=== PATIENT | male | born 1960 | race Asian ===

== ENCOUNTER 2020-05-15 03:07 | Inpatient (IN) | payer OTHER ==
[2020-05-15] VITALS (23 sets, daily range): BP systolic 113–179; BP diastolic 51–117
[~2020-05-15] VITALS: Ht 170.2 cm; Wt 117.0 kg
--- NOTE | 2020-05-15 03:11 | NUR ---
bibra for sob x 30 mins captain room service. per ra room air 02 was 89-90% placed on NRB at 15lpm.; pt to bed 8, placed on monitor. +sob. hx of dialysis m/w/f. pending er provider rony
[2020-05-15] MEDS ORDERED: IPRATROPIUM NEB FS 0.5 MG/2.5 ML AMPUL.NEB ONE (03:39)
[2020-05-15] MEDS ORDERED: ALBUTEROL FS 2.5 MG/3 ML VIAL.NEB ONE (03:39)
[2020-05-15] MEDS ORDERED: AMIN30LI27 PO (03:57)
[2020-05-15] MEDS ORDERED: DEXT15DR6 OP (03:57)
[2020-05-15] MEDS ORDERED: ASPI-1169 PO (03:57)
[2020-05-15] MEDS ORDERED: VIT1TABL44 PO (03:57)
[2020-05-15] MEDS ORDERED: BISA-79 PO (03:57)
[2020-05-15] MEDS ORDERED: AMLO5TAB4 PO (03:57)
[2020-05-15] MEDS ORDERED: MAG-5 PO (03:57)
[2020-05-15] MEDS ORDERED: ACET-73 PO (03:57)
[2020-05-15] MEDS ORDERED: LORA10TA7 PO (03:57)
[2020-05-15] MEDS ORDERED: MAGN400O6 GT (03:57)
[2020-05-15] MEDS ORDERED: CLON-418 PO (03:57)
[2020-05-15] MEDS ORDERED: ONDA4TAB5 PO (03:57)
[2020-05-15] MEDS ORDERED: MIDO5TAB4 PO (03:57)
[2020-05-15] MEDS ORDERED: INSU100V39 SQ (03:57)
[2020-05-15] MEDS ORDERED: HYDR4TAB57 PO (03:57)
[2020-05-15] MEDS ORDERED: AMIO200T4 PO (03:57)
[2020-05-15] MEDS ORDERED: PANT40TA49 PO (03:57)
[2020-05-15] MEDS ORDERED: METO50TA16 PO (03:57)
[2020-05-15] MEDS ORDERED: NA P133E RC (03:57)
[2020-05-15] MEDS ORDERED: INSU100V7 SQ (03:57)
[2020-05-15] MEDS ORDERED: GABA-532 PO (03:57)
[2020-05-15] MEDS ORDERED: SEVE800T8 PO (03:57)
[2020-05-15] MEDS ORDERED: CLOP75TA15 PO (03:57)
[2020-05-15] MEDS ORDERED: IPRATROPIUM NEB FS 0.5 MG/2.5 ML AMPUL.NEB NEB ONE (04:00)
[2020-05-15] MEDS ORDERED: ALBUTEROL FS 2.5 MG/3 ML VIAL.NEB CONTNEB ONE (04:00)
[2020-05-15 04:06] LABS: BASOPHILS # (AUTO) 0.1 /CMM (0.0-0.2); BASOPHILS % (AUTO) 0.5 % (0.0-2.0); EOSINOPHILS % (AUTO) 1.1 % (0.0-6.0); HEMATOCRIT 38 % (39-51); LYMPHOCYTES # (AUTO) 0.7 /CMM (0.8-4.8); LYMPHOCYTES % (AUTO) 6.2 % (20.0-44.0); MEAN CORPUSCULAR HGB CONC 32 g/dl (31.0-36.0); MEAN CORPUSCULAR VOLUME 95 fL (80-96); MONOCYTES # (AUTO) 0.7 /CMM (0.1-1.30); MONOCYTES % (AUTO) 6.9 % (2.0-12.0); NEUTROPHILS # (AUTO) 9.2 /CMM (1.8-8.9); NEUTROPHILS % (AUTO) 85.3 % (43.0-81.0); PLATELET COUNT (AUTO) 123 /CMM (150-450); RED BLOOD CELL COUNT(AUTO) 3.97 MIL/uL (4.5-6.0); WHITE BLOOD COUNT (AUTO) 10.8 K/uL (4.3-11.0)
[2020-05-15 04:11] LABS: CALCIUM, SERUM 9.2 mg/dL (8.5-10.1); POTASSIUM 6.1 mmol/L (3.5-5.1)
[2020-05-15 04:20] LABS: CREATININE 9.5 mg/dL (0.6-1.3)
[2020-05-15] MEDS ORDERED: CALCIUM CHLORIDE 1,000 MG/10 ML DISP.SYRIN IV ONE (04:30)
[2020-05-15] MEDS ORDERED: INSULIN REGULAR, HUMAN 100 UNIT/ML 10 ML VIAL IV ONE (04:30)
[2020-05-15] MEDS ORDERED: FUROSEMIDE 40 MG/4 ML VIAL IV ONE (04:30)
[2020-05-15] MEDS ORDERED: SODIUM BICARBONATE SYR 50 MEQ/50 ML DISP.SYRIN IV ONE (04:30)
[2020-05-15] MEDS ORDERED: FUROSEMIDE 40 MG/4 ML VIAL ONE (04:54)
[2020-05-15] MEDS ORDERED: DEXTROSE 50%-WATER 50 ML DISP.SYRIN ONE (04:55)
[2020-05-15] MEDS ORDERED: SODIUM BICARBONATE SYR 50 MEQ/50 ML DISP.SYRIN ONE (04:55)
[2020-05-15] MEDS ORDERED: INSULIN REGULAR, HUMAN 100 UNIT/ML 10 ML VIAL ONE (04:56)
--- NOTE | 2020-05-15 05:17 | NUR ---
CALLED NURSING SUP FOR BED
--- NOTE | 2020-05-15 05:18 | NUR ---
BED 261 ASSIGNMENT
--- NOTE | 2020-05-15 05:18 | NUR ---
per dr. segura; placed pt on 4lpm nc
--- NOTE | 2020-05-15 05:22 | NUR ---
DR. BARNARD SPEAKING WITH DR. MANSFIELD REGARDING ADMISSION
[2020-05-15] MEDS ORDERED: CALCIUM CHLORIDE 1,000 MG/10 ML DISP.SYRIN ONE (05:25)
--- NOTE | 2020-05-15 05:56 | NUR ---
report given to isrrael licea for jazmine; pt will be transported to icu
[2020-05-15] MEDS ORDERED: Z GUARD REMEDY 2 OZ OINT TP PRN (06:30)
[2020-05-15] MEDS ORDERED: DEXTROSE 50%-WATER 50 ML DISP.SYRIN IV PRN (06:30)
[2020-05-15] MEDS ORDERED: NA PHOS,M-B/NA PHOS,DI-BA 1 EA ENEMA RC PRN (06:30)
[2020-05-15] MEDS ORDERED: MAG HYDROX/AL HYDROX/SIMETH 30 ML UDC PO SCH (06:30)
[2020-05-15] MEDS ORDERED: MAGNESIUM HYDROXIDE 30 ML UDC GT PRN (06:30)
[2020-05-15] MEDS ORDERED: ONDANSETRON HCL/PF 4 MG/2 ML VIAL IVP PRN (06:30)
[2020-05-15] MEDS ORDERED: BISACODYL (5 MG) 5 MG TABLET.DR PO PRN (06:30)
[2020-05-15] MEDS ORDERED: HYDROMORPHONE HCL 2 MG TABLET PO PRN (06:30)
[2020-05-15] MEDS ORDERED: HYDROCODONE/APAP 5/325MG TABLET PO PRN (06:30)
[2020-05-15] MEDS ORDERED: MAG HYDROX/AL HYDROX/SIMETH 30 ML UDC PO PRN (06:30)
[2020-05-15] MEDS ORDERED: ACETAMINOPHEN 325 MG TABLET PO PRN (06:30)
[2020-05-15] MEDS ORDERED: CLONIDINE HCL 0.1 MG TABLET PO PRN (06:30)
[2020-05-15] MEDS ORDERED: MAGNESIUM HYDROXIDE 30 ML UDC PO PRN (06:30)
--- NOTE | 2020-05-15 06:30 | NUR ---
RECEIVED PATIENT FROM RESERVATION MANAGER TERRI ROGEL. PATIENT IS ASLEEP AND EASY TO AROUSE. PATIENT IS A/O X4 NEPALI SPEAKING. NO SIGN OF ANY DISTRESS. PATIENT HAS A R PACEMAKER AND SINUS ON THE MONITOR. PATIENT IS ON 4L OF O2 SATURATING WELL AT 95% WITH NO SIGNS OF ANY SOB. VITALS WNL WILL ENDORSE TO MORNING SHIFT NURSE FOR ADMISSION REPORT.
[2020-05-15] MEDS ORDERED: hydrALAZINE HCL IV 20 MG VIAL IV PRN (08:00)
[2020-05-15] MEDS: BLOOD SUGAR DIAGNOSTIC 1 EACH STRIP VI SCH ×4 (08:04→22:44)
--- NOTE | 2020-05-15 08:10 | NUR ---
RN NOTES PT IS RESTING IN BED. PATIENT IS ASLEEP AND EASY AND TO AROUSE. PATIENT IS A/O X4 MALAY SPEAKING. NO SIGN OF ANY DISTRESS. PATIENT HAS A R PACEMAKER AND SINUS ON THE MONITOR. PATIENT IS ON 4L OF O2 SATURATING WELL AT 96% WITH NO SIGNS OF ANY SOB. VITALS PT HAS R HAND #22 THUMB AND INDEX NOT FLUSHING WELL. GOING TO PLACE AN ORDER FOR MIDLINE. POTASSIUM IS 6.1 HD WILL BE DONE TODAY.SAFETY MEASUREMENTS ARE IMPLEMENTED BY HOSPITAL POLICY. CALL LIGHT WITHIN THE REACH AND BED IS IN THE LOWEST POSITION SIDE RAILS X2.WILL CONTINUE TO MONITOR
[2020-05-15] MEDS: LORATADINE 10 MG TABLET PO SCH (08:13)
[2020-05-15] MEDS: SEVELAMER CARBONATE 800 MG TABLET PO SCH ×3 (08:13→17:08)
[2020-05-15] MEDS: PANTOPRAZOLE 40 MG TABLET.DR PO SCH (08:14)
[2020-05-15] MEDS: CLOPIDOGREL BISULFATE 75 MG TABLET PO SCH (08:14)
[2020-05-15] MEDS: METOPROLOL TARTRATE 50 MG TABLET PO SCH ×2 (08:14→17:08)
[2020-05-15] MEDS: VIT B CMPLX 3/FA/VIT C/BIOTIN 1 TAB TABLET PO SCH (08:14)
[2020-05-15] MEDS: MIDODRINE HCL (5MG) 5 MG TABLET PO SCH ×2 (08:15→17:08)
[2020-05-15] MEDS: ASPIRIN 81 MG TAB.CHEW PO SCH (08:15)
[2020-05-15] MEDS: AMIODARONE HCL 200 MG TABLET PO SCH (08:15)
[2020-05-15] MEDS: GABAPENTIN 100 MG CAPSULE PO SCH ×3 (08:15→17:08)
[2020-05-15] MEDS: PROSOURCE / PROSTAT (PYXIS) 30 ML UDC PO SCH ×2 (08:18→17:09)
[2020-05-15] MEDS: AMLODIPINE BESYLATE 5 MG TABLET PO SCH (08:35)
[2020-05-15] MEDS: POLYVINYL ALCOHOL 15 ML BOTTLE EACHEYE SCH ×2 (08:35→17:09)
[2020-05-15] MEDS: INSULIN REGULAR, HUMAN 100 UNIT/ML 3 ML VIAL SQ PRN ×2 (08:38→12:12)
[2020-05-15 09:30] LABS: C-REACTIVE PROTEIN 8.9 mg/dL (0.0-0.9)
[2020-05-15 11:06] LABS: ABG BASE EXCESS -0.2 mmol/L; ABG OXYGEN SATURATION 91.5 % (92.0-98.5); ABG PCO2 35.2 mmHg (35.0-45.0); ABG PH 7.443 (7.350-7.450); ABG PO2 60.9 mmHg (75.0-100.0); AaDO2 126.1 mmHg; COHb 0.5 % (0.5-1.5); SITE, ABG Right Radial; VENT MODE, BG Nasal Cannula
--- NOTE | 2020-05-15 12:30 | NUR ---
RN NOTES AHMED DIALYSIS NURSE ON THE BD SIDE
--- NOTE | 2020-05-15 15:15 | NUR ---
RN NOTES AHMED FINISHED AND 3 L OUT
--- NOTE | 2020-05-15 19:40 | NUR ---
RN CLOSING NOTES PT IS RESTING IN BED. PATIENT IS EASY TO AROUSE. PATIENT IS A/O X4 MALTESE SPEAKING. NO SIGN OF ANY DISTRESS, SOB NOTED. PATIENT HAS A R PACEMAKER AND SINUS ON THE MONITOR. PATIENT IS ON 4L OF O2 SATURATING WELL AT 96% WITH NO SIGNS OF ANY SOB. MIDLINE INSERTED FLUSHING WELL NO S/S OF INFILTRATION OR INFECTION WELL.HD WAS DONE TODAY 3L OUT.SAFETY MEASUREMENTS ARE IMPLEMENTED BY HOSPITAL POLICY. CALL LIGHT WITHIN THE REACH AND BED IS IN THE LOWEST POSITION SIDE RAILS X2.WILL ENDORSE TO [facility] SHIFT FOR CONTINUE OF CARE
--- NOTE | 2020-05-15 19:46 | NUR ---
PT RECEIVED IN BED. A/A/O X4. PT IS ON 4 L VIA NC SATING 95% ,NO SOB NOTED. PT HAS RICK MIDLINE FLUSHES WELL AND INTACT.PT HAS L ARM AV SHUNT. SAFETY MEASURES IN PLACE BED AT LOWEST POSITION , LOCKED, SIDE RAILS UP X2, CALL LIGHT IN REACH.
--- NOTE | 2020-05-15 20:52 | NUR ---
report given to nurse for jazmine.
--- NOTE | 2020-05-15 22:00 | NUR ---
MORTGAGE LOAN OFFICER NOTES RECEIVED REPORT FROM PATRICIO RAMIREZ; WILL CONT PLAN OF CARE AND CONT TO MONITOR PATIENT
--- NOTE | 2020-05-15 23:06 | NUR ---
COMPUTER REPAIR TECHNICIAN NOTES SPOKE WITH NURSING ROLL CUTTER REGARDING PATIENT ADMISSION STATUS; PER ENRIQUE MULTANI NP; PATIENT ADMIT TO OBSERVATIONAL UNIT, ICU OVERFLOW; PER NURSING ROLL CUTTER, MOVE PATIENT CLOSER TO NURSING STATION AND CONTINUE TO MONITOR, FOLLOW UP WITH AM SHIFT REGARDING STATUS; PATIENT IS A/OX4, TOLERATING 4LPM VIA NC WELL SATTING 95-98%; TELE MONITOR READS SINUS RHYTHM WITH BBB HR IN 70S; TRANSFERRING PATIENT TO ROOM 203-1, NURSING ROLL CUTTER AWARE; WILL CONT TO MONITOR;
[2020-05-16] VITALS: BP 133/56
--- NOTE | 2020-05-16 00:12 | NUR ---
ASSISTANT PRODUCTION EDITOR NOTES SPOKE WITH KAMERON SHELDON REGARDING PATIENT ADMIT STATUS, PER KAMERON SHELDON, PATIENT CAN BE DOWNGRADED TO TELE. NURSING GLASS DRILLER MADE AWARE; WILL CONT TO MONITOR
[2020-05-16 04:00] VITALS: BP 153/74
--- NOTE | 2020-05-16 05:01 | NUR ---
LADIES' LOCKER ROOM ATTENDANT NOTES PER PATIENT, DOES NOT WANT BED BATH; PATIENT REQUESTED FOR DIAPER CHANGE/BED CHANGE AND FOR BED BATH LATER, "CAN I HAVE BATH LATER WITH NEXT SHIFT." WILL INFORM DAY SHIFT; WILL CONT TO MONITOR
--- NOTE | 2020-05-16 05:30 | NUR ---
SERVICER TRAVEL TRAILERS NOTES OCCUPATIONAL THERAPIST AIDE REPORTED PATIENT HAS A MIDLINE AND REQUESTED TO DRAW LABS FROM MIDLINE; WAS INFORMED ORDERS ARE NEEDED TO BE ABLE TO DRAW BLOOD FROM MIDLINE; NO MD ORDERS AT THIS TIME; MADE OCCUPATIONAL THERAPIST AIDE AWARE, OCCUPATIONAL THERAPIST AIDE STATED SHE WILL COME BACK WHEN IT IS CHANGE OF SHIFT, AND ASK INCOMING NURSE TO DRAW FROM MIDLINE; WILL CONT TO MONITOR PATIENT
[2020-05-16] MEDS: BLOOD SUGAR DIAGNOSTIC 1 EACH STRIP VI SCH ×4 (06:37→21:23)
--- NOTE | 2020-05-16 06:38 | NUR ---
BENCH MECHANIC CLOSING NOTES PATIENT RESTING IN BED COMFORTABLY; A/OX4, BREATHING EVEN AND UNLABORED; PATIENT TOLERATING 4LPM VIA NC WELL; NO SOB NOTED; TELE MONITOR READS SINUS RHYTHM WITH BBB AND 70S; AMBERLY AV SHUNT PRESENT, PACEMAKER PRESENT; RICK MIDLINE #18 INTACT AND PATENT, FLUSHING WELL; NO S/S OF REDNESS OR INFILTRATION NOTED; ALL NEEDS RENDERED; PATIENT ABLE TO MAKE NEEDS KNOWN; ISOLATION PRECAUTIONS MAINTAINED; SAFETY PRECAUTIONS IMPLMENTED; BED LOCKED IN LOW POSITION; SIDE RAILSX2; CALL LIGHT WITHIN EASY REACH; WILL ENDORSE JUSTYN TO ONCOMING SHIFT PATIENT REFUSING INSULIN COVERAGE; BS: 147, PATIENT REPORTED, "147 IS NOT THAT BAD, I DO NOT WANT THE INSULIN, WHAT WILL YOU GIVE ME, LIKE 1 OR 2 UNITS? NO THANK YOU". PATIENT WAS EDUCATED ON RISKS AND BENEFITS AND MED-COMPLIANCE THROUGHOUT HOSPITALIZATION; PATIENT IS AWARE BUT STILL REFUSED; WILL INFORM ONCOMING SHIFT
--- NOTE | 2020-05-16 07:25 | NUR ---
OCEANOGRAPHY TEACHER NOTES PATIENT RECEIVED IN BED RESTING COMFORTABLY, AWAKE, ALERT AND ORIENTED X 4. ON NASAL CANNULA, 4 LITERS WILL TITRATE DOWN TO 3LITERS, PATIENT DENIES SOB AT THIS TIME, NO SIGNS OF RESPIRATORY DISTRESS, AND WITH EVEN NON-LABORED BREATHING. ON CREAM DUMPER, SINUS RHYTHM, 70'S. PATIENT SKIN WARM AND DRY TO TOUCH. IV ACCESS INTACT AND PATENT ON RIGHT UPPER ARM MIDLINE SALINE LOCK. PATIENT DENIES PAIN OR ANY DISCOMFORT AT THIS TIME. ISOLATION PRECAUTIONS REMAINED FOR RULE OUT COVID, AWAITING FOR RESULTS AT THIS TIME. SAFETY PRECAUTIONS IMPLEMENTED WITH BED LOCKED, BED IN THE LOWEST POSITION, BILATERAL SIDE RAILS UP, BED ALARM ON AND CALL LIGHT WITHIN EASY REACH OF PATIENT. WILL CONTINUE TO MONITOR PATIENT.
[2020-05-16 08:00] VITALS: BP 169/88
[2020-05-16] MEDS: METOPROLOL TARTRATE 50 MG TABLET PO SCH ×2 (08:38→17:15)
[2020-05-16] MEDS: AMIODARONE HCL 200 MG TABLET PO SCH (08:38)
[2020-05-16] MEDS: PROSOURCE / PROSTAT (PYXIS) 30 ML UDC PO SCH ×2 (08:38→16:56)
[2020-05-16] MEDS: GABAPENTIN 100 MG CAPSULE PO SCH ×3 (08:38→16:56)
[2020-05-16] MEDS: ASPIRIN 81 MG TAB.CHEW PO SCH (08:38)
[2020-05-16] MEDS: LORATADINE 10 MG TABLET PO SCH (08:39)
[2020-05-16] MEDS: PANTOPRAZOLE 40 MG TABLET.DR PO SCH (08:39)
[2020-05-16] MEDS: AMLODIPINE BESYLATE 5 MG TABLET PO SCH (08:39)
[2020-05-16] MEDS: SEVELAMER CARBONATE 800 MG TABLET PO SCH ×3 (08:39→16:56)
[2020-05-16] MEDS: CLOPIDOGREL BISULFATE 75 MG TABLET PO SCH (08:39)
[2020-05-16] MEDS: VIT B CMPLX 3/FA/VIT C/BIOTIN 1 TAB TABLET PO SCH (08:39)
[2020-05-16] MEDS: MIDODRINE HCL (5MG) 5 MG TABLET PO SCH ×2 (08:40→17:00)
[2020-05-16] MEDS: POLYVINYL ALCOHOL 15 ML BOTTLE EACHEYE SCH ×2 (08:50→16:57)
[2020-05-16 09:55] LABS: BASOPHILS % (AUTO) 0.6 % (0.0-2.0); EOSINOPHILS % (AUTO) 2.7 % (0.0-6.0); HEMATOCRIT 32 % (39-51); HEMOGLOBIN 10.1 g/dL (13.5-17.5); LYMPHOCYTES # (AUTO) 0.7 /CMM (0.8-4.8); LYMPHOCYTES % (AUTO) 9.9 % (20.0-44.0); MEAN CORPUSCULAR HGB CONC 32 g/dl (31.0-36.0); MEAN CORPUSCULAR VOLUME 95 fL (80-96); MONOCYTES # (AUTO) 0.6 /CMM (0.1-1.30); MONOCYTES % (AUTO) 8.3 % (2.0-12.0); NEUTROPHILS # (AUTO) 5.5 /CMM (1.8-8.9); NEUTROPHILS % (AUTO) 78.5 % (43.0-81.0); PLATELET COUNT (AUTO) 107 /CMM (150-450); RED BLOOD CELL COUNT(AUTO) 3.33 MIL/uL (4.5-6.0)
[2020-05-16 10:12] LABS: MAGNESIUM 2.5 mg/dL (1.8-2.4); PHOSPHORUS 4.9 mg/dL (2.5-4.9); POTASSIUM 6.1 mmol/L (3.5-5.1)
[2020-05-16 10:30] VITALS: BP 145/66
[2020-05-16 10:33] LABS: CREATININE 9.8 mg/dL (0.6-1.3)
--- NOTE | 2020-05-16 11:00 | NUR ---
AIRBRUSH ARTIST PHOTOGRAPHY NOTES REPORT GIVEN TO JOHANNY/PATRICIO HEAD FOR JUSTYN. WILL CONTINUE TO MONITOR PATIENT.
--- NOTE | 2020-05-16 11:15 | NUR ---
PROGRAM FACILITATOR NOTES PATIENT TRANSFERRED TO [address] [place] [address] [phone]. FOLLOWED ACLS PROTOCOL TRANSFERRED PATIENT BY BED, RN JOHANNY AND ADILENE AWAITING AT BEDSIDE.
--- NOTE | 2020-05-16 12:00 | NUR ---
HISTORIC SITES SUPERVISOR NOTES INFORMED DR. CANTRELL ABOUT PATIENT'S CREATININE 9.8 AND POTASSIUM LEVEL OF 6.1, NO NEW ORDERS AT THIS TIME. ALSO INFORMED ABOUT PATIENT'S VTE SCORE AND NEED OF CHEMICAL PROPHYLAXIS, PER DR. CANTRELL ORDERED HEPARIN SQ 5,000 UNITS BID.
[2020-05-16] MEDS: *INSULIN REGULAR(HUMULIN R)HUM 100 UNIT/ML VIAL SQ PRN ×3 (12:05→22:21)
[2020-05-16 16:03] VITALS: BP 128/76
[2020-05-16 17:18] LABS: CALCIUM, SERUM 8.6 mg/dL (8.5-10.1); CREATININE 6.4 mg/dL (0.6-1.3)
--- NOTE | 2020-05-16 18:44 | NUR ---
COUNTER WEIGHER CLOSING NOTES PATIENT RESTING IN BED COMFORTABLY, A/OX4, ON O2 3L VIA NC, BREATHING EVEN AND UNLABORED NO SOB NOTED, NO ACUTE RESPIRATORY DISTRESS NOTED, PATIENT ON TELE MONITOR WITH SINUS RHYTHM AND BBB WITH 70'S BPM, PACEMAKER IN PLACE, AV SHUNT TO AMBERLY AND RICK MIDLINE #18 INTACT AND PATENT FLUSHING WELL WITH NO REDNESS OR SIGNS OF INFILTRATION NOTED, PATIENT ABLE TO MAKE NEEDS KNOWN ALL SAFETY PRECAUTIONS IMPLMENTED, BED IN LOW POSITION LOCKED AND SIDE RAILS UPX2, CALL LIGHT WITHIN REACH, PT HAD HD DONE TODAY WITH 2 L OUTPUT, BMP ORDERERD AND SENT TO LAB. WILL ENDORSE TO ONCOMING SHIFT
--- NOTE | 2020-05-16 19:30 | NUR ---
MS RN NOTE: PATIENT RESTING IN BED, NO ACUTE DISTRESS NOTED. BREATHING EVEN AND UNLABORED, NO SOB NOTED. MIDLINE TO RICK IN PLACE. AV SHUNT TO LEFT UPPER ARM IN PLACE, NO BLEEDING NOTED. BED LOCKED AND IN LOWEST POSITION, CALL LIGHT IN REACH. WILL CONTINUE TO MONITOR.
[2020-05-16 20:00] VITALS: BP 124/65
[2020-05-16] MEDS: HEPARIN SODIUM, PORCINE 5000 UNITS/1 ML VIAL SQ SCH (21:22)
--- NOTE | 2020-05-16 22:30 | NUR ---
MS RN NOTE: PATIENT BLOOD SUGAR LEVEL 165MG/LD, PATIENT TO RECEIVE 3 UNITS OF INSULIN PER SLIDING SCALE. NO S/S OF HYPER/HYPOGLYCEMIA NOTED. REPORT GIVEN TO NIKKI FOR CONTINUATION OF CARE. WILL CONTINUE TO MONITOR.
--- NOTE | 2020-05-16 22:47 | NUR ---
MS/TELE/RN ASSUMED CARE FOR CONTINUITY OF CARE. PATIENT APPEARS SLEEPING, APPEARS COMFORTABLE, NO SIGN OF DISTRESS NOTED, BREATHING EVEN AND UNLABORED, CALL LIGHT IN REACH, WILL MONITOR.
--- NOTE | 2020-05-17 06:52 | NUR ---
MS/TELE/RN PATIENT IS AWAKE AT THIS TIME, COMFORTABLE, NO C/O PAIN, NO DISTRESS NOTED, CALL LIGHT IN REACH, ALL NEEDS ATTENDED AT THIS TIME, WILL CONTINUE TO MONITOR.
[2020-05-17] MEDS: BLOOD SUGAR DIAGNOSTIC 1 EACH STRIP VI SCH ×3 (06:58→17:30)
--- NOTE | 2020-05-17 07:02 | NUR ---
MS RN OPENING NOTES RECEIVED PT RESTING IN BED AT THIS TIME. AOX4. NO SOB NOTED, NO S/S OF ANY ACUTE DISTRESS NOTED. NO C/O PAIN AT THIS TIME. RESPIRATIONS ARE EVEN AND UNLABORED WITH EQUAL RISE AND FALL IN CHEST.RUE MIDLINE NOTED, INTACT, PATENT AND FLUSHING WELL. PT NOTED WITH LUE FISTULA, CLEAN AND DRY, RBKA AND LLE DISCOLORATION NOTED. SAFETY PRECAUTION IN PLACE AND MAINTAINED AT ALL TIMES. BED IN LOWEST LOCKED POSITION, HOB ELEVATED, SIDE RAILS UP X 2, CALL LIGHT WITHIN REACH. WILL CONTINUE TO MONITOR
[2020-05-17] MEDS: HEPARIN SODIUM, PORCINE 5000 UNITS/1 ML VIAL SQ SCH (09:00)
[2020-05-17] MEDS: GABAPENTIN 100 MG CAPSULE PO SCH ×3 (09:01→17:28)
[2020-05-17] MEDS: LORATADINE 10 MG TABLET PO SCH (09:01)
[2020-05-17] MEDS: VIT B CMPLX 3/FA/VIT C/BIOTIN 1 TAB TABLET PO SCH (09:01)
[2020-05-17] MEDS: MIDODRINE HCL (5MG) 5 MG TABLET PO SCH ×2 (09:01→17:00)
[2020-05-17] MEDS: METOPROLOL TARTRATE 50 MG TABLET PO SCH ×2 (09:02→17:28)
[2020-05-17] MEDS: CLOPIDOGREL BISULFATE 75 MG TABLET PO SCH (09:02)
[2020-05-17] MEDS: AMIODARONE HCL 200 MG TABLET PO SCH (09:02)
[2020-05-17] MEDS: PANTOPRAZOLE 40 MG TABLET.DR PO SCH (09:02)
[2020-05-17] MEDS: SEVELAMER CARBONATE 800 MG TABLET PO SCH ×3 (09:02→17:28)
[2020-05-17] MEDS: ASPIRIN 81 MG TAB.CHEW PO SCH (09:02)
[2020-05-17] MEDS: AMLODIPINE BESYLATE 5 MG TABLET PO SCH (09:03)
[2020-05-17] MEDS: PROSOURCE / PROSTAT (PYXIS) 30 ML UDC PO SCH ×2 (09:07→17:00)
[2020-05-17] MEDS: POLYVINYL ALCOHOL 15 ML BOTTLE EACHEYE SCH ×2 (09:15→17:00)
[2020-05-17 09:23] VITALS: BP 144/67
[2020-05-17] MEDS: INSULIN REGULAR, HUMAN 100 UNIT/ML 3 ML VIAL SQ PRN (12:06)
[2020-05-17 15:10] LABS: ALBUMIN 2.9 g/dL (3.4-5.0); BILIRUBIN,TOTAL 1.5 mg/dL (0.2-1.0); CALCIUM, SERUM 8.6 mg/dL (8.5-10.1); POTASSIUM 5.2 mmol/L (3.5-5.1); TOTAL PROTEIN, SERUM 7.8 g/dL (6.4-8.2)
[2020-05-17 15:17] LABS: CREATININE 9.5 mg/dL (0.6-1.3)
--- NOTE | 2020-05-17 15:20 | NUR ---
PT STATED " I RECEIVED FLU VACCINE TWO WEEKS AGO". FOLLOW UP WITH PATRICIO NOVOA [facility] [facility] AT [facility]. PER PATRICIO NOVOA [facility] [facility] AT [facility], PT RECEIVED FLU VACCINE ON MAY 04, 2020. WILL CONTINUE WITH PLAN OF CARE
--- NOTE | 2020-05-17 16:10 | NUR ---
PT PENDING DISCHARGE TO [facility] AT THIS TIME. REPORT GIVEN TO PATRICIO NOVOA @[facility]. PT IN MEDICALLY STABLE CONDITION. ALL CARE, NEEDS, MEDICATIONS AND TREATMENT ADMINISTERED ANTICIPATED PER ORDER. PT KEPT CLEAN AND DRY. ALL DISCHARGE INSTRUCTIONS PROVIDED AND PT VERBALIZE UNDERSTANDING. PICTURES TAKEN AND FILED IN CHARGE. BELONGINGS ACCOUNTED FOR, SIGNED BY PT AND FILED IN CHART. DR CANTRELL AND RY, CHARGE NURSE AWARE.
[2020-05-17 16:13] VITALS: BP 144/65
[2020-05-17 17:28] VITALS: BP 144/65
--- NOTE | 2020-05-17 18:29 | NUR ---
Awaiting for transportation.
--- NOTE | 2020-05-17 18:49 | NUR ---
Patient picked up by ambulance. Right upper arm midline removed. ID wrist band removed. Patient in stable condition. All belongings with the patient.
== END 2020-05-17 18:55 | DRG 189 ==
LOC: ER 03:09 → ICU 05:21 → TELE2 12:14 → TELE 05-16 11:21 → MED 05-16 15:40
PROVIDERS: ADMIT Nurse Practitioner Acute Care; ATTEND Internal Medicine
PROC: 5A1D70Z Performance of Urinary Filtration, Intermittent, Less than 6 Hours Per Day (ICD-10-PCS; principal; 2020-05-15)
PROC: 05HD33Z Insertion of Infusion Device into Right Cephalic Vein, Percutaneous Approach (ICD-10-PCS; 2020-05-15)
DX: J96.01 Acute respiratory failure with hypoxia (principal); I21.A1 Myocardial infarction type 2; N18.6 End stage renal disease; I50.33 Acute on chronic diastolic (congestive) heart failure; I13.2 Hypertensive heart and chronic kidney disease with heart failure and with stage 5 chronic kidney disease, or end stage renal disease; Z68.41 Body mass index [BMI] 40.0-44.9, adult; E11.22 Type 2 diabetes mellitus with diabetic chronic kidney disease; Z99.2 Dependence on renal dialysis; E66.9 Obesity, unspecified; Z95.1 Presence of aortocoronary bypass graft; I25.10 Atherosclerotic heart disease of native coronary artery without angina pectoris; Z87.891 Personal history of nicotine dependence; Z79.4 Long term (current) use of insulin; Z79.02 Long term (current) use of antithrombotics/antiplatelets; I25.2 Old myocardial infarction; Z79.82 Long term (current) use of aspirin; Z79.899 Other long term (current) drug therapy; I16.0 Hypertensive urgency; E87.5 Hyperkalemia; E78.5 Hyperlipidemia, unspecified; Z95.2 Presence of prosthetic heart valve; Z89.511 Acquired absence of right leg below knee; E11.51 Type 2 diabetes mellitus with diabetic peripheral angiopathy without gangrene; G47.33 Obstructive sleep apnea (adult) (pediatric); E66.01 Morbid (severe) obesity due to excess calories; Z88.0 Allergy status to penicillin; N25.0 Renal osteodystrophy
CPT/HCPCS: 36415; 36600; 71045-TC; 80048-TC; 80053-TC; 82728-TC; 82803-TC; 82962-TC; 83605-TC; 83615-TC; 83735-TC; 83880; 84100-TC; 84484-TC; 85025-TC; 85378-TC; 86140-TC; 86706; 87081-TC; 87340; 90935-TC; 93307-TC; G0378; J1644; J1815; J1940; J3490; J7030; U0003-CS

== ENCOUNTER 2020-06-29 01:36 | Inpatient (IN) | payer OTHER ==
[~2020-06-29] VITALS: Ht 180.3 cm; Wt 117.9 kg
[~2020-06-29 01:36] MED LIST: ACET-73 PO; AMIN30LI27 PO; AMIO200T5 PO; AMLO5TAB4 PO; ASPI-1169 PO; BISA-79 PO; CLON-418 PO; CLOP75TA15 PO; DEXT15DR6 OP; GABA-532 PO; HYDR4TAB57 PO; INSU100V39 SQ; INSU100V7 SQ; LORA10TA7 PO; MAG-5 PO; MAGN400O6 GT; METO50TA16 PO; MIDO5TAB4 PO; NA P133E RC; ONDA4TAB5 PO; PANT40TA49 PO; SEVE800T8 PO; VIT1TABL44 PO
--- NOTE | 2020-06-29 01:40 | NUR ---
PT VAL FROM [facility] FOR C/O GENERALIZED ABD PAIN, N/V X 3 HRS. PT AAOX4, RESPIRATIONS EVEN AND UNLABORED ON W/ NAD NOTED. PT CONNECTED TO THE GARMENT FORM ASSEMBLER AND POX
[2020-06-29] MEDS ORDERED: ONDANSETRON HCL/PF 4 MG/2 ML VIAL ONE (01:45)
[2020-06-29] MEDS ORDERED: MORPHINE SULFATE INJ 4 MG/ML DISP.SYRIN ONE (01:45)
--- NOTE | 2020-06-29 01:56 | NUR ---
BLOOD COLLECTED AND SENT TO LAB
[2020-06-29 01:58] LABS: BASOPHILS % (AUTO) 0.2 % (0.0-2.0); EOSINOPHILS % (AUTO) 2.8 % (0.0-6.0); HEMATOCRIT 36 % (39-51); HEMOGLOBIN 12.1 g/dL (13.5-17.5); LYMPHOCYTES # (AUTO) 0.5 /CMM (0.8-4.8); LYMPHOCYTES % (AUTO) 6.1 % (20.0-44.0); MEAN CORPUSCULAR HGB CONC 33 g/dl (31.0-36.0); MEAN CORPUSCULAR VOLUME 95 fL (80-96); MONOCYTES # (AUTO) 0.5 /CMM (0.1-1.30); MONOCYTES % (AUTO) 6.9 % (2.0-12.0); NEUTROPHILS # (AUTO) 6.5 /CMM (1.8-8.9); PLATELET COUNT (AUTO) 108 /CMM (150-450); RED BLOOD CELL COUNT(AUTO) 3.81 MIL/uL (4.5-6.0); WHITE BLOOD COUNT (AUTO) 7.7 K/uL (4.3-11.0)
[2020-06-29] MEDS ORDERED: ONDANSETRON HCL/PF 4 MG/2 ML VIAL IVP ONE (02:00)
[2020-06-29] MEDS ORDERED: MORPHINE SULFATE INJ 2 MG/ML DISP.SYRIN IV ONE (02:00)
[2020-06-29 02:25] LABS: CALCIUM, SERUM 9.5 mg/dL (8.5-10.1); CREATININE 6.3 mg/dL (0.6-1.3)
[2020-06-29] MEDS ORDERED: HYDROMORPHONE 1 MG/1 ML DISP.SYRIN ONE ×2 (02:25→05:19)
[2020-06-29] MEDS ORDERED: HYDROMORPHONE 1 MG/1 ML DISP.SYRIN IV ONE ×2 (02:30→05:30)
[2020-06-29 02:34] LABS: ALBUMIN 3.6 g/dL (3.4-5.0); BILIRUBIN,DIRECT 1.5 mg/dL (0.0-0.2); BILIRUBIN,TOTAL 1.9 mg/dL (0.2-1.0); TOTAL PROTEIN, SERUM 8.7 g/dL (6.4-8.2)
--- NOTE | 2020-06-29 04:50 | NUR ---
PT TAKEN TO RADIOLOGY FOR CT
--- NOTE | 2020-06-29 04:59 | NUR ---
PT BACK FROM CT
[2020-06-29] MEDS ORDERED: CLONIDINE HCL 0.1 MG TABLET ONE (06:03)
[2020-06-29] MEDS ORDERED: CLONIDINE HCL 0.1 MG TABLET PO ONE (06:30)
[2020-06-29] MEDS ORDERED: ZOLPIDEM TARTRATE 5 MG TABLET PO PRN (06:30)
[2020-06-29] MEDS ORDERED: ONDANSETRON HCL/PF 4 MG/2 ML VIAL IVP PRN (06:30)
[2020-06-29] MEDS ORDERED: MAGNESIUM HYDROXIDE 30 ML UDC PO PRN (06:30)
[2020-06-29] MEDS ORDERED: MAG HYDROX/AL HYDROX/SIMETH 30 ML UDC PO PRN (06:30)
[2020-06-29] MEDS ORDERED: Z GUARD REMEDY 2 OZ OINT TP PRN (06:30)
--- NOTE | 2020-06-29 06:44 | NUR ---
REPORT GIVEN TO PATRICIO LOPEZ FOR JUSTYN
--- NOTE | 2020-06-29 07:16 | NUR ---
PATIENT TRANSFERRED TO FLOOR VIA ACLS PROTOCOL. NO DISTRESS NOTED.
[2020-06-29] MEDS: PANTOPRAZOLE 40 MG TABLET.DR PO SCH (07:30)
[2020-06-29] MEDS ORDERED: FAMOTIDINE/PF INJ 20 MG/2 ML VIAL IV ONE (08:30)
[2020-06-29] MEDS: IV D5/0.45 NACL 1,000 ML IV PRN (08:59)
[2020-06-29] MEDS ORDERED: DEXTROSE 50%-WATER 50 ML DISP.SYRIN IV PRN (10:30)
[2020-06-29] MEDS: HEPARIN SODIUM, PORCINE 5000 UNITS/1 ML VIAL SQ SCH ×2 (10:57→20:06)
[2020-06-29] MEDS: MORPHINE SULFATE INJ 4 MG/ML DISP.SYRIN IV PRN (10:58)
[2020-06-29] MEDS: INSULIN REGULAR, HUMAN 100 UNIT/ML 3 ML VIAL SQ PRN ×2 (11:37→17:27)
[2020-06-29] MEDS: BLOOD SUGAR DIAGNOSTIC 1 EACH STRIP IN SCH ×2 (12:37→17:31)
[2020-06-29] MEDS ORDERED: hydrALAZINE HCL IV 20 MG VIAL IV PRN (13:00)
--- NOTE | 2020-06-29 13:04 | NUR ---
MS/RN NOTES DR. DINH ORDER CLEAR LIQUID FOR NOW, ENDOSCOPIC RETROGRADE CHOLANGIOPANCREATOGRAPHY CONSENT AND NPO POST MIDNIGHT
[2020-06-29] MEDS: HYDROCODONE/APAP 5/325MG TABLET PO PRN (13:29)
[2020-06-29] MEDS: METOPROLOL TARTRATE 25 MG TABLET PO SCH ×2 (13:52→20:27)
[2020-06-29 16:00] VITALS: BP 164/74
[2020-06-29] MEDS ORDERED: LABETALOL 20 MG/4 ML VIAL IV PRN (17:00)
--- NOTE | 2020-06-29 19:11 | NUR ---
MS/RN CLOSING NOTES PATIENT IS ON BED. ALERT AND ORIENTED X3. PATIENT IN NO APPARENT RESPIRATORY DISTRESS NOTED. NO COMPLAINED OF PAIN NOTED AT THIS TIME. IV ACCESS AT RIGHT HAND # 20 WITH IV FLUID OF D5 1/2 NS 1 L AT 45 ML/HR ON AND INFUSING WELL. SEEN AND EXAMINED BY MD WITH ORDERS MADE AND CARRIED OUT. ALL DUE MEDICATION WAS GIVEN. SAFETY PRECAUTION WAS IN PLACED. BED IN LOWEST POSITION AND LOCKED. SIDERAILS UP X2.CALL LIGHT WITHIN REACH. PATIENT ERCP CONSENT WAS SIGNED AND ATTACH TO CHART, PATIENT IS ON NPO POST MIDNIGHT. WILL ENDORSED TO TWISTING DEPARTMENT END FINDER FOR JUSTYN.
--- NOTE | 2020-06-29 19:20 | NUR ---
MS/RN OPENING NOTES: RECEIVED PATIENT ON THE BED. A/OX2-3. WITH PERIODS OF CONFUSION. PATIENT IN NO APPARENT RESPIRATORY DISTRESS NOTED. NO COMPLAINED OF PAIN NOTED AT THIS TIME. IV ACCESS AT RIGHT HAND # 20 WITH IV FLUID OF D5 1/2 NS 1 L AT 45 ML/HR ON AND INFUSING WELL. RLE BKA NOTED. SAFETY PRECAUTION WAS IN PLACED. BED IN LOWEST POSITION AND LOCKED. SIDE RAILS UP X2.CALL LIGHT WITHIN REACH. PATIENT ERCP CONSENT WAS SIGNED AND ATTACH TO CHART, PATIENT IS GONNA BE PLACED ON NPO MIDNIGHT FOR PROCEDURE ERCP. CONSENTS ALREADY SIGNED AND IN THE CHART. WILL CONTINUE TO MONITOR ACCORDINGLY.
--- NOTE | 2020-06-29 19:55 | NUR ---
MS/RN NOTES: PT. TEMP IS 100.3. APPLIED COOLING MEASURES FOR NOW. 3 ICE PACKS. PT IS STABLE. WILL CONTINUE TO MONITOR ACCORDINGLY.
[2020-06-29 20:00] VITALS: BP 122/58
--- NOTE | 2020-06-29 20:07 | NUR ---
MS/RN NOTES: DR. MASON MADE AWARE THAT PATIENT HAS A PROCEDURE ERCP TOMORROW AND THAT THERE IS A SCHEDULED HEPARIN DOSE AT [address]. [address] MASON, "HOLD HEPARIN UNTIL AFTER ERCP". ORDERS NOTED AND CARRIED OUT.
[2020-06-29] MEDS: ACETAMINOPHEN 325 MG TABLET PO PRN (20:27)
--- NOTE | 2020-06-29 22:00 | NUR ---
MS/RN NOTES: BED BATH PROVIDED FOR THE PATIENT. TEMP IS NOW 97.6. NO FEVER. PT. IS COMFORTABLE IN BED, KEPT CLEAN AND DRY. WILL CONTINUE TO MONITOR ACCORDINGLY.
--- NOTE | 2020-06-30 | NUR ---
MS/RN NOTES: ACCU CHECK FOR 0000 IS 161. COVERAGE IS 3 UNITS PER NPO SLIDING SCALE. IVF D5 1/2 NS RUNNING. WILL CONTINUE TO MONITOR.
[2020-06-30] MEDS: BLOOD SUGAR DIAGNOSTIC 1 EACH STRIP IN SCH ×5 (00:10→23:12)
[2020-06-30] MEDS: INSULIN REGULAR, HUMAN 100 UNIT/ML 3 ML VIAL SQ PRN ×5 (00:12→23:14)
--- NOTE | 2020-06-30 06:45 | NUR ---
MS/RN CLOSING NOTES: PATIENT REMAINS ON THE BED. A/OX2-3. WITH PERIODS OF CONFUSION SOMETIMES. NO APPARENT RESPIRATORY DISTRESS NOTED. NO COMPLAINED OF PAIN NOTED AT THIS TIME. IV ACCESS AT RIGHT HAND # 20 WITH IV FLUID OF D5 1/2 NS 1 L AT 45 ML/HR ON AND INFUSING WELL. SAFETY PRECAUTION WAS IN PLACED. BED IN LOWEST POSITION AND LOCKED. SIDE RAILS UP X2.CALL LIGHT WITHIN REACH. PATIENT ERCP CONSENT WAS SIGNED AND PLACED IN CHART, PATIENT REMAINS NPO SINCE MIDNIGHT FOR PROCEDURE ERCP TODAY. ALL DUE MEDS GIVEN ORDERED. ALL NURSING NEEDS MET AND RENDERED. KEPT CLEAN AND DRY, WARM AND COMFORTABLE IN BED AT ALL TIMES. WILL ENDORSE TO DAY SHIFT FOR JUSTYN.
[2020-06-30] MEDS: PANTOPRAZOLE 40 MG TABLET.DR PO SCH (07:13)
[2020-06-30] MEDS: IV D5/0.45 NACL 1,000 ML IV PRN (07:36)
--- NOTE | 2020-06-30 07:45 | NUR ---
MS/RN - Assessment Patient is awake, A/O X 3, c/o mild abdominal pain, offered pain medication but refused for now, stable on room air, no s/s of distress. IVF D5 1/2 NS at 45 ml/hr infusing well on the right hand with no signs of infiltration, currently NPO for ERCP. Labs results still pending. Patient updated on plan of care and in agreement. Will continue with current medical management.
[2020-06-30 08:00] VITALS: BP 149/66
[2020-06-30] MEDS: HEPARIN SODIUM, PORCINE 5000 UNITS/1 ML VIAL SQ SCH ×2 (08:13→20:55)
[2020-06-30] MEDS: METOPROLOL TARTRATE 25 MG TABLET PO SCH ×3 (08:13→21:00)
[2020-06-30 09:01] LABS: CALCIUM, SERUM 9.4 mg/dL (8.5-10.1); CREATININE 7.2 mg/dL (0.6-1.3); MAGNESIUM 2.3 mg/dL (1.8-2.4); PHOSPHORUS 2.2 mg/dL (2.5-4.9); POTASSIUM 4.5 mmol/L (3.5-5.1)
[2020-06-30 09:03] LABS: BASOPHILS % (AUTO) 0.3 % (0.0-2.0); EOSINOPHILS % (AUTO) 1.2 % (0.0-6.0); HEMATOCRIT 38 % (39-51); HEMOGLOBIN 12.3 g/dL (13.5-17.5); LYMPHOCYTES # (AUTO) 0.3 /CMM (0.8-4.8); LYMPHOCYTES % (AUTO) 3.1 % (20.0-44.0); MEAN CORPUSCULAR HGB CONC 32 g/dl (31.0-36.0); MEAN CORPUSCULAR VOLUME 97 fL (80-96); MONOCYTES # (AUTO) 0.8 /CMM (0.1-1.30); NEUTROPHILS # (AUTO) 9.1 /CMM (1.8-8.9); NEUTROPHILS % (AUTO) 87.4 % (43.0-81.0); PLATELET COUNT (AUTO) 89 /CMM (150-450); RED BLOOD CELL COUNT(AUTO) 3.94 MIL/uL (4.5-6.0); WHITE BLOOD COUNT (AUTO) 10.4 K/uL (4.3-11.0)
[2020-06-30 09:07] LABS: THYROID STIMULATING HORMONE 0.69 uIU/mL (0.358-3.74)
[2020-06-30 16:00] VITALS: BP 157/55
--- NOTE | 2020-06-30 18:50 | NUR ---
MS/RN - End of shift summary No significant change in condition seen, able to tolerate clear liquids, may advance diet as tolerated, still c/o of abdominal tenderness on the RUQ, medication offered but refused, denies n/v. HIDA scan pending, HD treatment ongoing. All needs attended. Will continue with current plan of care.
[2020-06-30] MEDS: ACETAMINOPHEN 325 MG TABLET PO PRN (19:22)
[2020-06-30] MEDS: HYDROCODONE/APAP 5/325MG TABLET PO PRN (19:27)
--- NOTE | 2020-06-30 19:30 | NUR ---
MS RN OPENING NOTES RECEIVED PATIENT RESTING IN BED COMFORTABLY; A/OX4, BREATHING EVEN AND UNLABORED; TOLERATING ROOM AIR WELL; DIALYSIS NURSE AT BEDSIDE; PATIENT COMPLAINING OF ABDOMINAL AND BACK PAIN; R HAND # 20 INTACT AND PATENT, TOLERATING IVF WELL; SAFETY PRECAUTIONS IMPLEMENTED; BED LOCKED IN LOW POSITION; SIDE RAILSX2; CALL LIGHT WITHIN REACH; WILL CONT TO MONITOR
--- NOTE | 2020-06-30 19:38 | NUR ---
MS RN NOTES PATIENT REQUESTED TYLENOL FROM AM SHIFT, PATIENT PAIN LEVEL RE-ASSESSED; PATIENT VERBALIZED 7/10 ABDOMINAL PAIN; REQUESTING MEDICATION STRONGER THAN TYLENOL; NORCO GIVEN PER MD ORDER; WILL CONT TO MONITOR
[2020-06-30 20:00] VITALS: BP 179/70
[2020-06-30] MEDS: MORPHINE SULFATE INJ 4 MG/ML DISP.SYRIN IV PRN (20:49)
--- NOTE | 2020-06-30 20:49 | NUR ---
MS RN NOTES PATIENT COMPLAINING NORCO DID NOT WORK AND COMPLAINT OF BACK AND ABDOMINAL PAIN 04/13; VITALS 187/105 PER DIALYSIS NURSE; VITALS RE-ASSESSED, 179/85 H R: 72; PATIENT REQUESTED MORPHINE, MORPHINE GIVEN PER MD ORDER; PER DIALYSIS NURSE OKAY TO GIVE MORPHINE DURING DIALYSIS SINCE IT WILL END IN 11 MINUTES; WILL CONT TO MONITOR, CHARGE NURSE AWARE
--- NOTE | 2020-06-30 21:00 | NUR ---
MS RN NOTES DIALYSIS COMPLETED, TOLERATED WELL; 1000L OUT; VITALS 96/56 HR 62, CHARGE NURSE AWARE; PATIENT RECEIVING FLUIDS; PATIENT SLEEPING BUT EASILY AROUSABLE; PATIENT REPORTED HE DOES NOT WANT TO BE BOTHERED AND WANTS TO REST SO HE DOESN'T FEEL HIS PAIN ANYMORE; PATIENT INFORMED VITALS WILL BE CHECKED AGAIN; WILL CONT TO MONITOR
--- NOTE | 2020-07-01 01:36 | NUR ---
MS RN NOTES VITALS STABLE BP: 132/62 HR: 76 SPO2: 95%
[2020-07-01] MEDS: IV D5/0.45 NACL 1,000 ML IV PRN (05:10)
[2020-07-01 06:08] LABS: BASOPHILS % (AUTO) 0.6 % (0.0-2.0); EOSINOPHILS % (AUTO) 1.5 % (0.0-6.0); HEMATOCRIT 36 % (39-51); HEMOGLOBIN 11.8 g/dL (13.5-17.5); LYMPHOCYTES # (AUTO) 0.4 /CMM (0.8-4.8); LYMPHOCYTES % (AUTO) 4.8 % (20.0-44.0); MEAN CORPUSCULAR HGB CONC 32 g/dl (31.0-36.0); MEAN CORPUSCULAR VOLUME 98 fL (80-96); MONOCYTES # (AUTO) 0.8 /CMM (0.1-1.30); MONOCYTES % (AUTO) 9.3 % (2.0-12.0); NEUTROPHILS # (AUTO) 6.8 /CMM (1.8-8.9); NEUTROPHILS % (AUTO) 83.8 % (43.0-81.0); WHITE BLOOD COUNT (AUTO) 8.1 K/uL (4.3-11.0)
[2020-07-01 06:09] LABS: PLATELET COUNT (AUTO) 71 /CMM (150-450)
[2020-07-01] MEDS: BLOOD SUGAR DIAGNOSTIC 1 EACH STRIP IN SCH ×3 (06:28→17:33)
[2020-07-01] MEDS: PANTOPRAZOLE 40 MG TABLET.DR PO SCH (06:34)
[2020-07-01] MEDS: INSULIN REGULAR, HUMAN 100 UNIT/ML 3 ML VIAL SQ PRN ×2 (06:34→17:38)
[2020-07-01 06:35] LABS: ALBUMIN 2.8 g/dL (3.4-5.0); BILIRUBIN,DIRECT 7.5 mg/dL (0.0-0.2); BILIRUBIN,TOTAL 9.3 mg/dL (0.2-1.0); CALCIUM, SERUM 9.5 mg/dL (8.5-10.1); CREATININE 6.7 mg/dL (0.6-1.3); POTASSIUM 4.8 mmol/L (3.5-5.1)
--- NOTE | 2020-07-01 07:08 | NUR ---
MS RN CLOSING NOTES PATIENT RESTING IN BED COMFORTABLY; A/OX4, BREATHING EVEN AND UNLABORED; TOLERATING ROOM AIR WELL; NO SOB NOTED; PATIENT NPO MAINTAINED; R HAND #20 INTACT AND PATENT, FLUSHING WELL; TOLERATING IVF WELL; PATIENT ABLE TO MAKE NEEDS KNOWN; ALL NEEDS RENDERED; PATIENT VERBALIZED WANTING TO GO BACK TO SNF IF NOT GOING FOR SURGERY; PATIENT IS FRUSTRATED HE HAS BEEN NPO FOR SEVERAL DAYS AND IS VERY HUNGRY; PATIENT WOULD LIKE TO GO BACK TO SNF IF POSSIBLE; WILL INFORM DAY SHIFT; SAFETY PRECAUTIONS IMPLEMENTED; BED LOCKED IN LOW POSITION; SIDE RAILSX2; CALL LIGHT WITHIN REACH; WILL ENDORSE JUSTYN TO ONCOMING SHIFT
[2020-07-01 08:00] VITALS: BP 138/62
[2020-07-01] MEDS: METOPROLOL TARTRATE 25 MG TABLET PO SCH ×2 (09:00→21:00)
[2020-07-01] MEDS: HEPARIN SODIUM, PORCINE 5000 UNITS/1 ML VIAL SQ SCH (09:00)
--- NOTE | 2020-07-01 11:00 | NUR ---
call from dr. louis to get a consent for ercp.charge entry informed.
--- NOTE | 2020-07-01 12:30 | NUR ---
iv malfunctioning,restarted rt. hand #22 angio.
--- NOTE | 2020-07-01 14:02 | NUR ---
NM HIDA SCAN WAS COMPLETED TECH:RB
--- NOTE | 2020-07-01 15:00 | NUR ---
back and fprth to x-ray several times for hida scan.
[2020-07-01 16:00] VITALS: BP 163/66
--- NOTE | 2020-07-01 19:50 | NUR ---
MS RN NOTES RECEIVED PATIENT RESTING IN BED COMFORTABLY; A/OX4, BREATHING EVEN AND UNLABORED; TOLERATING ROOM AIR WELL; PERIPHERAL IV ACCESS ON HIS RIGHT HAND G#22, TOLERATING IVF WELL; SAFETY PRECAUTIONS IN PLACE ASPIRATION PRECAUTION EMPHASIZED; BED LOCKED IN LOW POSITION; SIDE RAILSX2; CALL LIGHT WITHIN EASY REACH; PATIENT ON NPO, ALL NEEDS ANTICIPATED. WILL CONT TO MONITOR ACCORDINGLY.
[2020-07-01 20:00] VITALS: BP 110/60
[2020-07-01 20:45] VITALS: BP 110/60
[2020-07-01] MEDS: MORPHINE SULFATE INJ 4 MG/ML DISP.SYRIN IV PRN (21:50)
[2020-07-02] MEDS: BLOOD SUGAR DIAGNOSTIC 1 EACH STRIP IN SCH ×4 (00:07→17:54)
[2020-07-02] MEDS: MORPHINE SULFATE INJ 4 MG/ML DISP.SYRIN IV PRN ×4 (03:19→22:02)
[2020-07-02] MEDS: PANTOPRAZOLE 40 MG TABLET.DR PO SCH (06:49)
--- NOTE | 2020-07-02 07:38 | NUR ---
MS RN NOTES ALL NEEDS ATTENDED AND MET. PATIENT RESTING IN BED COMFORTABLY; A/OX4, BREATHING EVEN AND UNLABORED; TOLERATING ROOM AIR WELL; PERIPHERAL IV ACCESS ON HIS RIGHT HAND G#22, TOLERATING IVF WELL; SAFETY PRECAUTIONS IN PLACE ASPIRATION PRECAUTION EMPHASIZED; BED LOCKED IN LOW POSITION; SIDE RAILSX2; CALL LIGHT WITHIN EASY REACH; PATIENT ON NPO, FOR ERCP. ALL NEEDS ANTICIPATED.ENDORSED TO AM NURSE FOR CONTINUITY OF CARE.
--- NOTE | 2020-07-02 08:10 | NUR ---
PATRICIO BELTRE NOTES PATIENT CURRENTLY IN BED SLEEPING WITH NO SIGNS OF DISTRESS IN ROOM AIR. NO COMPLAIN OF PAIN AT THIS MOMENT. IV R HAND #22G RUNNING D5 1/2 NS AT 45 ML/HR . PATIENT CURRENTLY NPO. SAFETY MEASURES ARE APPLIED. BED IS IN LOWEST LOCKED POSITION WITH SIDE RAILS UP X 2 FOR SAFETY. CALL LIGHT IS WITHIN REACH. WILL CONTINUE TO MONITOR.
[2020-07-02] MEDS: METOPROLOL TARTRATE 25 MG TABLET PO SCH ×2 (09:00→21:00)
--- NOTE | 2020-07-02 09:00 | NUR ---
HELD BP MED, PATIENT WILL BE HAVING HEMODIALYSIS. WILL CONTINUE TO MONITOR.
[2020-07-02] MEDS: MUPIROCIN OINT 2% 22 GM TUBE TP SCH ×2 (09:20→21:57)
[2020-07-02 09:53] LABS: CALCIUM, SERUM 9.5 mg/dL (8.5-10.1); POTASSIUM 4.7 mmol/L (3.5-5.1)
[2020-07-02 09:57] LABS: CREATININE 9.7 mg/dL (0.6-1.3)
[2020-07-02] MEDS: INSULIN REGULAR, HUMAN 100 UNIT/ML 3 ML VIAL SQ PRN ×2 (13:02→17:54)
[2020-07-02] MEDS: IV D5/0.45 NACL 1,000 ML IV PRN (17:55)
--- NOTE | 2020-07-02 19:43 | NUR ---
MS RN CLOSED NOTES PATIENT A/O X 4 WITH NO SIGNS OF DISTRESS IN ROOM AIR. NO COMPLAIN OF PAIN AT THIS MOMENT. IV R HAND #22G RUNNING D5 1/2 NS AT 45 ML/HR. PATIENT KEPT CLEAN AND DRY. ALL NEEDS, CARE, TREATMENT,AND MEDICATIONS WERE ADMINISTERED ANTICIPATED PER ORDER. SAFETY MEASURES ARE APPLIED, BED IS IN LOW POSITION SIDE RAILS UP X 2. CALL LIGHT WITHIN REACH WILL ENDORSE TO THE CORK TIPPER NURSE.
[2020-07-02 20:00] VITALS: BP 103/59
--- NOTE | 2020-07-02 20:00 | NUR ---
RN NOTE PT RECEIVED IN BED RESTING, A/A/O X4, PT IS ON RA SARING 96%, PT HAS UNLABORED BREATHING. PT HAS IV 22 G ON R HAND D5 1/2 NS IS RUNNING. SAFETY MEASURES IN PLACE.
[2020-07-03] MEDS: BLOOD SUGAR DIAGNOSTIC 1 EACH STRIP IN SCH ×5 (00:20→23:27)
[2020-07-03] MEDS: INSULIN REGULAR, HUMAN 100 UNIT/ML 3 ML VIAL SQ PRN ×4 (00:43→18:19)
[2020-07-03] MEDS: MORPHINE SULFATE INJ 4 MG/ML DISP.SYRIN IV PRN ×2 (04:22→23:28)
[2020-07-03 06:43] LABS: CALCIUM, SERUM 9.1 mg/dL (8.5-10.1); POTASSIUM 4.5 mmol/L (3.5-5.1)
[2020-07-03 06:55] LABS: CREATININE 8.5 mg/dL (0.6-1.3)
[2020-07-03 07:02] LABS: BASOPHILS # (AUTO) 0.1 /CMM (0.0-0.2); BASOPHILS % (AUTO) 1.2 % (0.0-2.0); HEMATOCRIT 31 % (39-51); LYMPHOCYTES # (AUTO) 0.5 /CMM (0.8-4.8); LYMPHOCYTES % (AUTO) 7.9 % (20.0-44.0); MEAN CORPUSCULAR HGB CONC 32 g/dl (31.0-36.0); MEAN CORPUSCULAR VOLUME 97 fL (80-96); MONOCYTES # (AUTO) 0.9 /CMM (0.1-1.30); MONOCYTES % (AUTO) 14.8 % (2.0-12.0); NEUTROPHILS # (AUTO) 4.3 /CMM (1.8-8.9); NEUTROPHILS % (AUTO) 71.1 % (43.0-81.0); PLATELET COUNT (AUTO) 93 /CMM (150-450); RED BLOOD CELL COUNT(AUTO) 3.16 MIL/uL (4.5-6.0); WHITE BLOOD COUNT (AUTO) 6.1 K/uL (4.3-11.0)
--- NOTE | 2020-07-03 07:28 | NUR ---
RN NOTE PT STAYED STABLE DURING MY SHIFT, REPORT GIVEN TO INCOMING SHIFT FOR JUSTYN.
[2020-07-03] MEDS: PANTOPRAZOLE 40 MG TABLET.DR PO SCH (07:30)
--- NOTE | 2020-07-03 07:57 | NUR ---
MS PATRICIO OPEN NOTES PATIENT IS A/O X 4 WITH NO SIGNS OF DISTRESS IN ROOM AIR. NO COMPLAIN OF PAIN AT THIS MOMENT. IV R HAND #22G RUNNING D5 1/2 NS AT 45 ML/HR AND AMBERLY AV SHUNT AND R CW PACEMAKER. PATIENT CURRENTLY NPO. SAFETY MEASURES ARE APPLIED. BED IS IN LOWEST LOCKED POSITION WITH SIDE RAILS UP X 2 FOR SAFETY. CALL LIGHT IS WITHIN REACH. WILL CONTINUE TO MONITOR.
[2020-07-03 08:00] VITALS: BP 115/52
[2020-07-03] MEDS: METOPROLOL TARTRATE 25 MG TABLET PO SCH ×2 (09:00→21:00)
[2020-07-03] MEDS: MUPIROCIN OINT 2% 22 GM TUBE TP SCH ×2 (10:31→21:38)
[2020-07-03 11:36] LABS: EOSINOPHILS % (MANUAL) 6 % (0-4); LYMPHOCYTES % (MANUAL) 8 % (16-48); MONOCYTES % (MANUAL) 12 % (0-11.0); NEUTROPHILS % (MANUAL) 74 (42-76)
[2020-07-03] MEDS: AMIODARONE HCL 200 MG TABLET PO SCH (12:00)
--- NOTE | 2020-07-03 14:21 | NUR ---
CALLED DR. GRIFFITHS FOR ERCP ORDER. ENRIQUE GARLAND AWARE.
--- NOTE | 2020-07-03 14:22 | NUR ---
WAITING FOR DR. GRIFFITHS'S CALL BACK.
--- NOTE | 2020-07-03 15:00 | NUR ---
SPOKE WITH DR. GRIFFITHS ABOUT ERCP SURGERY. HE SAID HE WILL SEE THE PATIENT IN PERSON BEFORE ORDERING PROCEDURE.
[2020-07-03 16:44] VITALS: BP 152/53
--- NOTE | 2020-07-03 19:40 | NUR ---
TRACK SURFACING MACHINE OPERATOR NOTE: PATIENT RESTING IN BED, NO ACUTE DISTRESS NOTED. BREATHING EVEN AND UNLABORED, NO SOB NOTED. IV TO RIGHT HAND IN PLACE. AV SHUNT TO AMBERLY IN PLACE, NO BLEEDING NOTED. BED LOCKED AND IN LOWEST POSITING, CALL LIGHT IN REACH. WILL CONTINUE TO MONITOR.
--- NOTE | 2020-07-03 19:53 | NUR ---
MS RN CLOSED NOTES PATIENT A/O X 4 WITH NO SIGNS OF DISTRESS IN ROOM AIR. NO COMPLAIN OF PAIN AT THIS MOMENT. IV R HAND #22G. PATIENT KEPT CLEAN AND DRY. ALL NEEDS, CARE, TREATMENT,AND MEDICATIONS WERE ADMINISTERED ANTICIPATED PER ORDER. SAFETY MEASURES ARE APPLIED, BED IS IN LOW POSITION SIDE RAILS UP X 2. CALL LIGHT WITHIN REACH WILL ENDORSE TO THE GRANT WRITER NURSE.
[2020-07-03 21:56] LABS: ALBUMIN 2.4 g/dL (3.4-5.0); BILIRUBIN,TOTAL 14.5 mg/dL (0.2-1.0); CALCIUM, SERUM 9.4 mg/dL (8.5-10.1); TOTAL PROTEIN, SERUM 7.3 g/dL (6.4-8.2)
[2020-07-03 21:57] LABS: CREATININE 10.5 mg/dL (0.6-1.3)
--- NOTE | 2020-07-03 23:30 | NUR ---
MS RN NOTE: PATIENT COMPLAINS OF ABDOMINAL PAIN 04/13, MORPHINE 4MG IV GIVEN PER MD ORDER. PATIENT BLOOD SUGAR LEVEL 112MG/DL, NO INSULIN PER SLIDING NEEDED. NO S/S OF HYPER/HYPOGLYCEMIA NOTED. WILL CONTINUE TO MONITOR.
[2020-07-04] MEDS: BLOOD SUGAR DIAGNOSTIC 1 EACH STRIP IN SCH ×3 (06:29→17:10)
--- NOTE | 2020-07-04 06:45 | NUR ---
HOT END OPERATOR NOTE: PATIENT RESTING IN BED, NO ACUTE DISTRESS NOTED. BREATHING EVEN AND UNLABORED, NO SOB NOTED. IV TO RIGHT HAND IN PLACE. AV SHUNT TO AMBERLY IN PLACE, NO BLEEDING NOTED. PATIENT BLOOD SUGAR LEVEL 108MG/DL, NO INSULIN NEEDED PER SLIDING SCALE. NO S/S OF HYPER/HYPOGLYCEMIA NOTED. BED LOCKED AND IN LOWEST POSITING, CALL LIGHT IN REACH. WILL ENDORSE TO DAY NURSE TO CONTINUE WITH PLAN OF CARE.
[2020-07-04] MEDS: PANTOPRAZOLE 40 MG TABLET.DR PO SCH (07:30)
[2020-07-04 07:55] LABS: BASOPHILS # (AUTO) 0.1 /CMM (0.0-0.2); BASOPHILS % (AUTO) 1.1 % (0.0-2.0); EOSINOPHILS % (AUTO) 6.1 % (0.0-6.0); HEMATOCRIT 33 % (39-51); HEMOGLOBIN 10.5 g/dL (13.5-17.5); LYMPHOCYTES # (AUTO) 0.5 /CMM (0.8-4.8); MEAN CORPUSCULAR HGB CONC 32 g/dl (31.0-36.0); MEAN CORPUSCULAR VOLUME 97 fL (80-96); MONOCYTES % (AUTO) 13.4 % (2.0-12.0); NEUTROPHILS # (AUTO) 5.5 /CMM (1.8-8.9); NEUTROPHILS % (AUTO) 72.4 % (43.0-81.0); PLATELET COUNT (AUTO) 127 /CMM (150-450); RED BLOOD CELL COUNT(AUTO) 3.37 MIL/uL (4.5-6.0); WHITE BLOOD COUNT (AUTO) 7.6 K/uL (4.3-11.0)
[2020-07-04 08:00] VITALS: BP 116/50
--- NOTE | 2020-07-04 08:00 | NUR ---
RN OPENING NOTE Patient is resting in bed, A/O x4, showing no signs of acute distress or SOB, stable on RA. Patient denies any pain or discomfort at this time. Patient is NPO d/t possible MRCP. Notified Naren to clarify since there is no order for MRCP. Waiting for response. Right BKA noted and left leg dryness and discoloration noted. AMBERLY AV shunt noted and right hand #22g is clean and intact flushing well. Bed is in lowest position, side rails x3 in upright position, call light is within reach, fall safety and aspiration precautions enforced. Will continue with plan of care.
[2020-07-04] MEDS: METOPROLOL TARTRATE 25 MG TABLET PO SCH ×2 (09:00→21:35)
[2020-07-04] MEDS: AMIODARONE HCL 200 MG TABLET PO SCH (09:00)
[2020-07-04] MEDS: MUPIROCIN OINT 2% 22 GM TUBE TP SCH ×2 (09:19→21:33)
[2020-07-04 09:56] LABS: CALCIUM, SERUM 9.6 mg/dL (8.5-10.1)
[2020-07-04 09:57] LABS: CREATININE 11.4 mg/dL (0.6-1.3)
[2020-07-04] MEDS ORDERED: VITAMINS A AND D 56.7 GM TUBE TP PRN (11:30)
[2020-07-04] MEDS: INSULIN REGULAR, HUMAN 100 UNIT/ML 3 ML VIAL SQ PRN ×2 (12:41→17:10)
--- NOTE | 2020-07-04 12:41 | NUR ---
RN NOTE NON-ADMIN INSULIN PER PROTOCOL BS 101. PATIENT IS NOW ON CLEAR LIQUID DIET PER [employer].
[2020-07-04] MEDS: HYDROCODONE/APAP 5/325MG TABLET PO PRN (13:15)
--- NOTE | 2020-07-04 14:28 | NUR ---
RAPID COVID SWAB SENT TO LAB
--- NOTE | 2020-07-04 15:26 | NUR ---
RN NOTE Patient started HD, patient is a/ox4, in no acute distress. Will continue to closely monitor.
--- NOTE | 2020-07-04 16:00 | NUR ---
RN NOTE During HD BP was running low around 80s/50s, per HD RN to order Albumin IV PRN HD. Patient remains a/ox4, asymptomatic. Will continue to monitor.
[2020-07-04] MEDS: ALBUMIN 25% 25 GM in PREMIX 1 EA IV PRN (16:22)
[2020-07-04 17:00] VITALS: BP 148/57
--- NOTE | 2020-07-04 17:10 | NUR ---
RN NOTE Non-admin insulin per protocol BS 111.
--- NOTE | 2020-07-04 19:05 | NUR ---
RN CLOSING NOTE Patient is resting in bed, A/O x4, showing no signs of acute distress or SOB, stable on RA. Patient denies any pain or discomfort at this time. Patient is able to tolerate clear liquid diet. Right BKA noted and left leg dryness and discoloration noted. AMBERLY AV shunt noted and right hand #22g is clean and intact flushing well. S/P HD TODAY WITH 0ML OUT. TRANSFER HELD PER CM D/T NO BED AVAILABLE. Bed is in lowest position, side rails x3 in upright position, call light is within reach, fall safety and aspiration precautions enforced. 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
--- NOTE | 2020-07-04 19:05 | NUR ---
rn ms opening notes received patient in bed awake alert and oriented x4, respirations even and unlabored with equal rise and fall of chest, denies any pain or discomfort at this time, left upper arm av shunt present bruit and thrill present, right hand #22 g intact and patent, no redness, no infiltration present, sl. oriented to staff and call light and kept within reach, safety precautions rendered low bed and locked, bed alarm in place, all needs attended at this time, will continue to monitor remains comfortable.
[2020-07-04 20:00] VITALS: BP 143/61
[2020-07-05] MEDS: BLOOD SUGAR DIAGNOSTIC 1 EACH STRIP IN SCH ×5 (00:07→23:31)
[2020-07-05] MEDS: INSULIN REGULAR, HUMAN 100 UNIT/ML 3 ML VIAL SQ PRN ×4 (00:08→23:32)
--- NOTE | 2020-07-05 06:35 | NUR ---
rn ms closing notes patient in bed awake alert and oriented x4, skin color is juandice. respirations even and unlabored with equal rise and fall of chest, denies any pain or discomfort at this time, left upper arm av shunt present bruit and thrill present, right hand #22 g intact and patent, no redness, no infiltration present, sl. call light kept within reach, safety precautions rendered low bed and locked, bed alarm in place, all needs attended at this time, will continue to monitor remains comfortable and will endorse to next shift. pending hloc transfer.
--- NOTE | 2020-07-05 07:44 | NUR ---
MS/RN NOTES RECEIVED PATIENT IS ON BED, SLEEPING EASILY AROUSABLE BY NAME AND LIGHT TOUCH. PATIENT IS ALERT AND ORIENTED X 4. NO COMPLAINED OF PAIN NOTED AT THIS TIME/ NO APPARENT RESPIRATORY DISTRESS NOTED. WILL CONTINUE TO MONITOR.
[2020-07-05 08:00] VITALS: BP 125/62
--- NOTE | 2020-07-05 08:23 | NUR ---
MS/RN NOTES ENRIQUE MULTANI ORDER FULL LIQUID RENAL DIET NOTED AND CARRIED OUT.
[2020-07-05] MEDS: METOPROLOL TARTRATE 25 MG TABLET PO SCH ×2 (08:58→21:00)
[2020-07-05] MEDS: PANTOPRAZOLE 40 MG TABLET.DR PO SCH (08:58)
[2020-07-05] MEDS: AMIODARONE HCL 200 MG TABLET PO SCH (08:59)
[2020-07-05] MEDS: MUPIROCIN OINT 2% 22 GM TUBE TP SCH ×2 (09:00→22:17)
--- NOTE | 2020-07-05 17:03 | NUR ---
MS/RN NOTES PATIENT IS OUT IN THE UNIT, MORTGAGE LOAN INTERVIEWER RUG FRAME MOUNTER. PATIENT IN NO APPARENT RESPIRATORY DISTRESS NOTED. NO COMPLAINED OF PAIN NOTED. Addendum: 07/05/20 at 1938 by LAITH DIAZ RN ERROR
--- NOTE | 2020-07-05 19:34 | NUR ---
MS RN CLOSING NOTES PATIENT SLEEPING, EASY TO AWAKEN. A/OX4. ON RA; NO S/S OF ACUTE RESPIRATORY DISTRESS; BREATHING IS EVEN AND UNLABORED. NO S/S OF PAIN NOTED. IV PRESENT ON RIGHT HAND, SIZE 22, INTACT & PATENT, HEP LOCKED. RIGHT BKA PRESENT. LEFT UPPER ARM AV SHUNT PRESENT, DRESSING DRY AND INTACT. SAFETY MEASURES IN PLACE AND PATIENT'S NEEDS MET. BED LOCKED, SIDE RAILS X2, CALL LIGHT WITHIN REACH. WILL CONTINUE TO MONITOR. Addendum: 07/06/20 at 0819 by NNEKA BARRON RN OPENING NOTES
--- NOTE | 2020-07-05 19:38 | NUR ---
MS/RN CLOSING NOTES PATIENT IS ON BED. ALERT AND ORIENTED X4. PATIENT IN NO APPARENT RESPIRATORY DISTRESS NOTED. NO COMPLAINED OF PAIN NOTED AT THIS TIME. IV ACCESS AT RIGHT HAND # 22 PATENT AND INTACT. SEEN AND EXAMINED BY MD WITH ORDERS MADE AND CARRIED OUT. ALL DUE MEDICATION WAS ORDER. SAFETY PRECAUTION WAS IN PLACED. BED IN LOWEST POSITION AND LOCKED. SIDERAILS UP X2. CALL LIGHTS WITHIN REACH. WILL ENDORSED TO NURSES' REGISTRY DIRECTOR FOR [employer].
[2020-07-05 20:00] VITALS: BP 93/47
--- NOTE | 2020-07-05 23:30 | NUR ---
MS RN NOTE PATIENT C/O LOWER ABDOMINAL PAIN RATED 10/10. PRN NORCO 5MG PO GIVEN PER PATIENT'S REQUEST. VITALS- BP: 111/50, HR: 69. SAFETY MEASURES IN PLACE AND PATIENT'S NEEDS MET. WILL CONTINUE TO MONITOR.
[2020-07-06] MEDS: BLOOD SUGAR DIAGNOSTIC 1 EACH STRIP IN SCH ×3 (06:33→18:55)
[2020-07-06] MEDS: HYDROCODONE/APAP 5/325MG TABLET PO PRN (06:45)
--- NOTE | 2020-07-06 06:45 | NUR ---
MS RN NOTES PATIENT C/O GENERALIZED PAIN RATED 10/10. ADMINISTERED PRN NORCO 5MG PO PER PATIENT'S REQUEST. VITALS - BP: 103/49, HR: 69. SAFETY MEASURES IN PLACE AND PATIENT'S NEEDS MET. WILL CONTINUE TO MONITOR.
[2020-07-06] MEDS: PANTOPRAZOLE 40 MG TABLET.DR PO SCH (07:08)
[2020-07-06 07:43] LABS: ALBUMIN 2.4 g/dL (3.4-5.0); BILIRUBIN,DIRECT 14.6 mg/dL (0.0-0.2); BILIRUBIN,TOTAL 16.9 mg/dL (0.2-1.0); CALCIUM, SERUM 9.7 mg/dL (8.5-10.1); POTASSIUM 5.4 mmol/L (3.5-5.1); TOTAL PROTEIN, SERUM 7.5 g/dL (6.4-8.2)
--- NOTE | 2020-07-06 07:49 | NUR ---
MS RN CLOSING NOTES PATIENT AWAKE IN BED. A/OX4. ON RA; NO C/O SOB; BREATHING IS EVEN AND UNLABORED. NO C/O PAIN. IV PRESENT ON RIGHT HAND, SIZE 22, INTACT & PATENT, HEP LOCKED. SAFETY MEASURES IN PLACE AND PATIENT'S NEEDS MET. BED LOCKED, SIDE RAILS X2, CALL LIGHT WITHIN REACH. ENDORSED TO DAY SHIFT RN PLAN OF CARE.
[2020-07-06 07:50] LABS: CREATININE 12.2 mg/dL (0.6-1.3)
--- NOTE | 2020-07-06 07:55 | NUR ---
MS/RN OPENING NOTES RECEIVED PATIENT ON BED AWAKE ALERT AND ORIENTED X4. PATIENT IN NO APPARENT RESPIRATORY DISTRESS NOTED. NO COMPLAINED OF PAIN AT THIS TIME. WILL CONTINUE TO MONITOR.
[2020-07-06 08:00] VITALS: BP 95/51
--- NOTE | 2020-07-06 08:00 | NUR ---
MS/RN NOTES CREATININE 12.2 MD IS AWARE. NO NEW ORDER AT THIS TIME.
[2020-07-06] MEDS: METOPROLOL TARTRATE 25 MG TABLET PO SCH ×2 (09:00→21:00)
[2020-07-06] MEDS: AMIODARONE HCL 200 MG TABLET PO SCH (09:00)
[2020-07-06] MEDS: MUPIROCIN OINT 2% 22 GM TUBE TP SCH ×2 (10:47→21:35)
[2020-07-06] MEDS: INSULIN REGULAR, HUMAN 100 UNIT/ML 3 ML VIAL SQ PRN (12:14)
[2020-07-06 16:07] VITALS: BP 105/54
--- NOTE | 2020-07-06 19:47 | NUR ---
MS/RN CLOSING NOTES PATIENT IS ALERT AND ORIENTED X4. PATIENT IN NO APPARENT RESPIRATORY DISTRESS NOTED. NO COMPLAINED OF PAIN AT THIS TIME. IV ACCESS AT RIGHT HAND #22G PATENT AND INTACT. SEEN AND EXAMINED BY MD WITH ORDERS MADE AND CARRIED OUT. ALL DUE MEDICATIONS WAS GIVEN. SAFETY PRECAUTIONS WAS IN PLACED. BED IN LOWEST POSITION AND LOCKED. SIDERAILS UP X 2. CALL LIGHT WITHIN REACH. WILL ENDORSED TO DIRECTOR FINANCIAL PLANNING FOR [employer].
--- NOTE | 2020-07-06 19:50 | NUR ---
RN NOTES RECEIVED REPORT FROM AM NURSE PATRICIO OZUNA.PATIENT FOR TRANSFER FOR HIGHER LEVEL OF CARE TO [facility], DISCHARGE PACKET PRINTED BY AM NURSE,SECURED IN PATIENTS' CHART. AWAITING FOR COUNTY LIBRARY DIRECTOR.
--- NOTE | 2020-07-06 20:00 | NUR ---
MS/RN NOTES RECEIVED PATIENT ALERT AND ORIENTED X4.NO SIGNS OF ACUTE RESPIRATORY DISTRESS NOTED.DENIES ANY PAIN AT THIS TIME. IV ACCESS AT RIGHT HAND #22G PATENT AND INTACT. SAFETY PRECAUTIONS WAS IN PLACED. ASPIRATION PRECAUTION EMPHASIZED BED IN LOWEST POSITION AND LOCKED. SIDE RAILS UP X 2. CALL LIGHT WITHIN REACH. ALL NEEDS ANTICIPATED. PATIENT WILL TRANSFER TO [facility], HEMODIALYSIS STARTING NOW. AWAITING FOR CASHIER PARKING LOT. WILL CONTINUE TO MONITOR ACCORDINGLY.
[2020-07-06 21:00] VITALS: BP 128/48
[2020-07-06] MEDS: ALBUMIN 25% 25 GM in PREMIX 1 EA IV PRN (21:10)
--- NOTE | 2020-07-06 21:36 | NUR ---
RN NOTES HEMODIALYSIS ONGOING, LOPRESSOR NOT GIVEN. ALBUMIN 25% FOR BP SUPPORT DURING HEMODIALYSIS GIVEN.
--- NOTE | 2020-07-06 22:15 | NUR ---
MS RN NOTES STATUS POST HEMODIALYSIS NO OUTPUT PER DIALYSIS NURSE PATRICIO MOTA.
--- NOTE | 2020-07-06 22:30 | NUR ---
RN NOTES PATIENT WAS PICKED UP BY [employer] TRANSFER TO [facility] FOR HIGHER LEVEL OF CARE. LEFT THE UNIT IN STABLE CONDITION, S/P HEMODIALYSIS NO OUTPUT. CLOE PETERSON CALLED AND MADE AWARE OF THE TRANSFER. ALL NEEDS ATTENDED. CHARGE NURSE AND STUDENT SERVICES REP AWARE OF THE DISCHARGE.
== END 2020-07-06 22:20 | disposition short-term general hospital (02) | DRG 444 ==
LOC: ER 01:38 → MED 06:35
PROVIDERS: ADMIT Nurse Practitioner Acute Care; ATTEND Nurse Practitioner Acute Care
PROC: 5A1D70Z Performance of Urinary Filtration, Intermittent, Less than 6 Hours Per Day (ICD-10-PCS; principal; 2020-06-30)
DX: K80.51 Calculus of bile duct without cholangitis or cholecystitis with obstruction (principal); K85.10 Biliary acute pancreatitis without necrosis or infection; I21.A1 Myocardial infarction type 2; N18.6 End stage renal disease; I13.2 Hypertensive heart and chronic kidney disease with heart failure and with stage 5 chronic kidney disease, or end stage renal disease; I50.32 Chronic diastolic (congestive) heart failure; D68.69 Other thrombophilia; I25.10 Atherosclerotic heart disease of native coronary artery without angina pectoris; E78.5 Hyperlipidemia, unspecified; Z79.4 Long term (current) use of insulin; Z87.891 Personal history of nicotine dependence; Z89.511 Acquired absence of right leg below knee; Z95.0 Presence of cardiac pacemaker; Z95.1 Presence of aortocoronary bypass graft; Z99.2 Dependence on renal dialysis; Z88.0 Allergy status to penicillin; E11.22 Type 2 diabetes mellitus with diabetic chronic kidney disease; E11.51 Type 2 diabetes mellitus with diabetic peripheral angiopathy without gangrene; E66.9 Obesity, unspecified; Z68.36 Body mass index [BMI] 36.0-36.9, adult; N25.0 Renal osteodystrophy; I48.91 Unspecified atrial fibrillation; K80.20 Calculus of gallbladder without cholecystitis without obstruction; Z74.09 Other reduced mobility
CPT/HCPCS: 36415; 71045-TC; 78226; 80048-TC; 80053-TC; 80061-TC; 80076-TC; 82962-TC; 83690-TC; 83735-TC; 84100-TC; 84443-TC; 84484-TC; 85025-TC; 85610-TC; 85730-TC; 86706; 87081-TC; 87340; 90935-TC; A4216; A9537; C9803; G0378; J1170; J1644; J1815; J2270; J2405; J3490; P9047